=== PATIENT | female | born 1985 | race African-American/Black ===

== ENCOUNTER 2017-06-28 12:50 | Emergency (ER) | payer SELFPAY ==
[~2017-06-28] VITALS: Ht 157.5 cm; Wt 82.0 kg
[2017-06-28 17:38] VITALS: BP 112/75
[2017-07-01 07:15] LABS: CHLAMYDIA TRACHOMATIS NAA Negative (Negative); NEISSERIA GONORRHOEAE NAA Negative (Negative)
== END 2017-06-28 17:42 | disposition home or self-care (01) ==
LOC: ER 15:50
DX: R10.2 Pelvic and perineal pain (principal)
CPT/HCPCS: 87210; 87491; 87591; 99284